=== PATIENT | female | born 1990 | race Caucasian/White ===

== ENCOUNTER 2023-11-04 11:02 | Emergency (ER) | payer SELFPAY ==
[~2023-11-04] VITALS: Ht 175.3 cm; Wt 79.4 kg
[2023-11-04 11:11] VITALS: O2SAT 97
== END 2023-11-04 11:49 | disposition left against medical advice (07) ==
LOC: ER 11:02
DX: R10.30 Lower abdominal pain, unspecified (principal); Z53.21 Procedure and treatment not carried out due to patient leaving prior to being seen by health care provider
CPT/HCPCS: A4606; A4663